=== PATIENT | female | born 2000 | race Two or more races ===

== ENCOUNTER 2020-01-08 00:41 | Emergency (ER) | payer OTHER ==
[~2020-01-08] VITALS: Ht 160 cm; Wt 50.8 kg
[2020-01-08] MEDS ORDERED: KETO10TA2 PO (04:05)
== END 2020-01-08 04:22 | disposition home or self-care (01) ==
LOC: ER 00:41
DX: N83.292 Other ovarian cyst, left side (principal); R10.2 Pelvic and perineal pain